=== PATIENT | female | born 1995 | race Caucasian/White ===

== ENCOUNTER 2018-01-13 17:31 | Observation (INO) ==
[2018-01-13 18:44] LABS: Bilirubin,Urine Negative (Negative); Blood,Urine Negative (Negative); Clarity,Urine Cloudy (Clear); Color,Urine Yellow (Yellow); Glucose,Urine (UA) 250 mg/dL (Normal); Ketones,Urine Trace mg/dL (Negative); Leukocyte Esterase,Urine Negative (Negative); Nitrite,Urine Negative (Negative); PH,Urine 5.5 pH Units (5.0-8.0); Protein,Urine 30 mg/dL (Neg-Trace); Specific Gravity,Urine > 1.030 (1.010-1.025); Urobilinogen,Urine Normal (Normal)
[2018-01-13 18:48] LABS: Bacteria,Urine Few per hpf (None-Few); RBC,Urine 0-3 per hpf (0-3); Squamous Epithelial Cell,Urine Many per lpf (None-Few); WBC,Urine 15-30 per hpf (0-3)
[2018-01-13 19:13] LABS: Amphetamine Screen,Urine Negative ng/mL (Cutoff=1000); Barbiturate Screen,Urine Negative ng/mL (Cutoff=200); Benzodiazepines Screen,Urine Negative ng/mL (Cutoff=200); Cannabinoid Screen,Urine Negative ng/mL (Cutoff = 50); Cocaine Screen,Urine Negative ng/mL (Cutoff= 300); Opiate Screen,Urine Negative ng/mL (Cutoff=300); Phencyclidine Screen,Urine Negative ng/mL (Cutoff=25)
[2018-01-13 19:31] LABS: Hyaline Casts,Urine None Seen per lpf (None-Few)
[2018-01-13 19:32] LABS: Calcium Oxalate Crystals,Urine Present
[2018-01-13 19:52] LABS: Basophils # 0.1 K/mcL (0.0-0.2); Basophils % 0.3 %; Eosinophils % 0.1 %; Hematocrit 35.2 % (35.3-44.9); Hemoglobin 11.7 g/dL (11.5-15.4); Immature Granulocytes % 2.6 % (0-4); Lymphocytes # 1.6 K/mcL (0.6-4.6); Lymphocytes % 10.9 %; Mean Corpuscular HGB Conc 33.2 g/dL (31.6-35.5); Mean Corpuscular Volume 96.2 fL (83.0-100.0); Mean Platelet Volume 9.8 fL (9.4-12.4); Monocytes % 6.8 %; Platelet Count 201 K/mcL (140-400); Red Blood Count 3.66 M/mcL (3.82-4.97); Red Cell Distribution Width 12.9 % (11.5-14.5); Segmented Neutrophils % 79.3 %
[2018-01-13 20:17] LABS: Alanine Aminotransferase 11 Units/L (7-52); Aspartate Amino Transferase 14 Units/L (13-39); BUN/Creatinine Ratio 13 (6-26); Blood Urea Nitrogen 7 mg/dL (6-20); Lactate Dehydrogenase 139 Units/L (140-271); Uric Acid 3.6 mg/dL (2.3-7.6); eGFR For Non-African Americans > 60 (> 60)
--- NOTE | 2018-01-13 20:41 | OB/GYN Progress Note ---
Date of Encounter: 01/13/18 Time of Encounter: 20:39 - Assessment and Plan (1) 33 weeks gestation of Current Visit: Yes Status: Acute (2) Abdominal pain affecting Current Visit: Yes Status: Acute Rare contractions seen on monitor, cervix closed thick and high, did show protein on UA, normotensive, PIH labs drawn and negative. Consult with Dr. Pal discharged home with labor and when to return to triage precautions. Subjective - Subjective Interval history: 33+ weeks gestation presents to triage with complaints of upper abdominal pain. Patient states she started to have upper abdominal pain radiating down her lower abdomen starting at 3 PM this afternoon. Patient describes the pain as constant and intermittent, stating and never totally goes away. Reports good movement, denies vaginal bleeding or leaking of fluid. care [facility] with Iona Serra Antepartum ROS: movement normal, contractions, no loss of fluid, no vaginal bleeding Objective - Vital Signs Vital Signs: Intake and Output 01/13/18 01/13/18 01/13/18 07:59 15:59 23:59 Other: Weight 110.677 kg Patient Weight 01/13/18 23:59 Weight 110.677 kg - Exam FHR: auscultation normal FHR comments: Baseline 145 Abdomen: Present: soft (No pain with deep palpation), gravid Cervical dilation: Closed/thick/high - Labs Labs: Abnormal lab results WBC 15.1 K/mcL (4.3-11.1) H 01/13/18 19:39 RBC 3.66 M/mcL (3.82-4.97) L 01/13/18 19:39 Hct 35.2 % (35.3-44.9) L 01/13/18 19:39 Neutrophils # 12.0 K/mcL (1.6-8.9) H 01/13/18 19:39 Creatinine 0.54 mg/dL (0.60-1.20) L 01/13/18 19:08 Lactate Dehydrogenase 139 Units/L (140-271) L 01/13/18 19:08 Urine Clarity Cloudy (Clear) A 01/13/18 17:30 Ur Specific [place] > 1.030 (1.010-1.025) H 01/13/18 17:30 Urine Protein 30 mg/dL (Neg-Trace) H 01/13/18 17:30 Urine Glucose (UA) 250 mg/dL (Normal) H 01/13/18 17:30 Urine Ketones Trace mg/dL (Negative) H 01/13/18 17:30 Urine Microscopic WBC 15-30 per hpf (0-3) H 01/13/18 17:30 Ur Squamous Epith Cells Many per lpf (None-Few) H 01/13/18 17:30
== END 2018-01-13 20:40 | disposition home or self-care (01) ==
LOC: 1NENULAB
PROVIDERS: ADMIT Advanced Practice Midwife; ATTEND Advanced Practice Midwife